=== PATIENT | female | born 1965 | race Caucasian/White ===

== ENCOUNTER 2022-01-23 10:15 | Emergency (ER) | payer OTHER ==
[~2022-01-23] VITALS: Ht 160 cm; Wt 89.0 kg
[2022-01-23] MEDS ORDERED: KETOROLAC 60MG/2ML VIAL IM ONE (11:45)
[2022-01-23] MEDS ORDERED: ACETAMINOPHEN 325MG TABLET PO ONE (11:45)
[2022-01-23] MEDS ORDERED: CYCL5TAB MT (13:29)
[2022-01-23] MEDS ORDERED: IBUP-2029 MT (13:29)
[2022-01-23 13:38] VITALS: BP 134/71
== END 2022-01-23 13:41 | disposition home or self-care (01) ==
LOC: ER 10:15
DX: M54.6 Pain in thoracic spine (principal); Z98.890 Other specified postprocedural states
CPT/HCPCS: 72070; 72100; 81025; 96372; 99284; J1885